=== PATIENT | male | born 1950 | race American Indian/Alaskan Native ===

== ENCOUNTER 2019-07-17 22:04 | Emergency (ER) | payer MEDICARE ==
[2019-07-17] MEDS ORDERED: HYDROmorphone 1 MG/1 ML INJ IM ONE (23:43)
--- NOTE | 2019-07-17 23:44 | Emergency Department Report ---
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 He apparently follows with a Dr. Dennis at [place]. Past medical history reportedly includes hypertension, high cholesterol, chronic back pain, currently on gabapentin, and being deaf. The patient is brought to the hospital by emergency medical services with a complaint of back pain. Apparently, the patient had an accident in 2017. He indicates that he has had back pain since 2017. The patient indicates his back pain feels t wisting in nature. He indicates his does not radiate anywhere. It apparently increases with palpation, twisting, range of motion. He did not describe any relieving factors. He made no complaints of lower extremity weakness, numbness, or bladder or bowel retention or incontinence. He denied urinary symptoms. She denied cough and abdominal pain. He did not endorse any additional complaints. He was brought to the hospital by EMS for this back pain. Apparently, he had a glucose in the 40s by EMS. In the ER, patient has normal Accu-Chek. When questioned, the patient does not indicate that he is taking any diabetic medications. -: year(s) Location: back Consistency: other Improves with: other Worsens with: other - Related Data Previous Rx's Medication Instructions Recorded Last Taken Type Acetaminophen [Non-Aspirin Extra 500 mg PO Q6HR PRN #30 tablet 07/18/19 Unknown Rx Strength] Ibuprofen [Motrin] 600 mg PO Q8H PRN #30 tablet 07/18/19 Unknown Rx Allergies Allergy/AdvReac Type Severity Reaction Status Date / Time No Known Allergies Allergy Verified 07/18/19 00:24 ED Review of Systems ROS: Stated complaint: BACK PAIN Other details as noted in HPI ENT: denies: epistaxis Respiratory: denies: wheezing Cardiovascular: denies: syncope Gastrointestinal: denies: abdominal pain Musculoskeletal: back pain Neurological: denies: numbness, paresthesias ED Past Medical Hx - Past Medical History Previous Medical History?: Yes Hx Hypertension: Yes Hx Diabetes: Yes Additional medical history: Deaf, herniated disc - Surgical History Past Surgical History?: No - Social History Smoking Status: Unknown if ever smoked - Medications Home Medications: Home Medications Medication Instructions Recorded Confirmed Last Taken Type Acetaminophen [Non-Aspirin Extra 500 mg PO Q6HR PRN #30 tablet 07/18/19 Unknown Rx Strength] Ibuprofen [Motrin] 600 mg PO Q8H PRN #30 tablet 07/18/19 Unknown Rx ED Physical Exam - General Limitations: Language Barrier General appearance: alert, in no apparent distress, obese - Head Head exam: Present: atraumatic, normocephalic - Eye Eye exam: Present: normal appearance, EOMI. Absent: nystagmus - ENT ENT exam: Present: normal exam, normal orophraynx, mucous membranes moist, normal external ear exam - Neck Neck exam: Present: normal inspection, full ROM. Absent: tenderness, meningismus - Respiratory Respiratory exam: Present: normal lung sounds bilaterally. Absent: respiratory distress - Cardiovascular Cardiovascular Exam: Present: regular rate, normal rhythm, normal heart sounds. Absent: bradycardia, tachycardia, irregular rhythm, systolic murmur, diastolic murmur, rubs, gallop - GI/Abdominal GI/Abdominal exam: Present: soft. Absent: distended, tenderness, guarding, rebound, rigid, pulsatile mass - Rectal Rectal exam: Present: deferred - Extremities Exam Extremities exam: Present: normal inspection, full ROM, other (2+ pulses noted in the bilateral upper, lower extremities. Compartments soft. No long bony tenderness. The pelvis is stable.). Absent: pedal edema, calf tenderness - Back Exam Back exam: Present: normal inspection, full ROM, paraspinal tenderness. Absent: CVA tenderness (R), CVA tenderness (L) - Neurological Exam Neurological exam: Present: alert, other (there is no facial droop. The tongue is midline. The extraocular movements are intact bilaterally. Patient moving 4 extremities spontaneously, 5/5 strength bilateral upper, lower extremities. Downgoing plantar reflexes bilaterally, sensation intact to pinch in 4 extremities, 2+ biceps, triceps, quadriceps reflex bilaterally) - Skin Skin exam: Present: warm, dry, intact, normal color. Absent: rash ED Course Vital Signs 07/17/19 07/17/19 07/17/19 22:13 22:17 22:30 Temperature 98.5 F Pulse Rate 81 Respiratory 20 Rate Blood Pressure 140/78 136/81 O2 Sat by Pulse 95 95 94 Oximetry 07/17/19 07/17/19 07/17/19 22:45 23:00 23:15 Temperature Pulse Rate Respiratory Rate Blood Pressure 136/81 139/70 139/70 O2 Sat by Pulse 94 95 94 Oximetry 07/17/19 07/18/19 23:30 01:34 Temperature Pulse Rate Respiratory Rate Blood Pressure 138/77 134/86 O2 Sat by Pulse 93 Oximetry ED Medical Decision Making - Lab Data Result diagrams: 07/17/19 23:59 07/17/19 23:59 Vital Signs 07/17/19 07/17/19 07/17/19 22:13 22:17 22:30 Temperature 98.5 F Pulse Rate 81 Respiratory 20 Rate Blood Pressure 140/78 136/81 O2 Sat by Pulse 95 95 94 Oximetry 07/17/19 07/17/19 07/17/19 22:45 23:00 23:15 Temperature Pulse Rate Respiratory Rate Blood Pressure 136/81 139/70 139/70 O2 Sat by Pulse 94 95 94 Oximetry 07/17/19 07/18/19 23:30 01:34 Temperature Pulse Rate Respiratory Rate Blood Pressure 138/77 134/86 O2 Sat by Pulse 93 Oximetry Lab Results 07/17/19 07/17/19 07/17/19 Range/Units 22:22 23:59 23:59 WBC 6.9 (4.5-11.0) K/mm3 RBC 4.82 (3.65-5.03) M/mm3 Hgb 15.1 (11.8-15.2) gm/dl Hct 46.0 H (35.5-45.6) % MCV 95 H (84-94) fl MCH 31 (28-32) pg MCHC 33 (32-34) % RDW 15.8 H (13.2-15.2) % Plt Count 201 (140-440) K/mm3 Sodium 139 (137-145) mmol/L Potassium 4.4 (3.6-5.0) mmol/L Chloride 106.9 (98-107) mmol/L Carbon Dioxide 25 (22-30) mmol/L Anion Gap 12 mmol/L BUN 18 (9-20) mg/dL Creatinine 1.1 (0.8-1.5) mg/dL Estimated GFR > 60 ml/min BUN/Creatinine Ratio 16 % Glucose 95 (75-100) mg/dL POC Glucose 93 (70-105) Calcium 9.2 (8.4-10.2) mg/dL Magnesium 2.60 H (1.7-2.3) mg/dL Total Bilirubin 0.30 (0.1-1.2) mg/dL AST 31 (5-40) units/L ALT 47 (7-56) units/L Alkaline Phosphatase 71 (35-129) units/L Total Creatine Kinase 96 (55-170) units/L Total Protein 8.2 (6.3-8.2) g/dL Albumin 3.8 L (3.9-5) g/dL Albumin/Globulin Ratio 0.9 % Urine Color (Yellow) Urine Turbidity (Clear) Urine pH (5.0-7.0) Ur Specific [place] (1.003-1.030) Urine Protein (Negative) mg/dL Urine Glucose (UA) (Negative) mg/dL Urine Ketones (Negative) mg/dL Urine Blood (Negative) Urine Nitrite (Negative) Urine Bilirubin (Negative) Urine Urobilinogen (<2.0) mg/dL Ur Leukocyte Esterase (Negative) Urine WBC (Auto) (0.0-6.0) /HPF Urine RBC (Auto) (0.0-6.0) /HPF U Epithel Cells (Auto) (0-13.0) /HPF Urine Mucus /HPF 07/18/19 07/18/19 07/18/19 Range/Units 00:23 00:28 01:44 WBC (4.5-11.0) K/mm3 RBC (3.65-5.03) M/mm3 Hgb (11.8-15.2) gm/dl Hct (35.5-45.6) % MCV (84-94) fl MCH (28-32) pg MCHC (32-34) % RDW (13.2-15.2) % Plt Count (140-440) K/mm3 Sodium (137-145) mmol/L Potassium (3.6-5.0) mmol/L Chloride (98-107) mmol/L Carbon Dioxide (22-30) mmol/L Anion Gap mmol/L BUN (9-20) mg/dL Creatinine (0.8-1.5) mg/dL Estimated GFR ml/min BUN/Creatinine Ratio % Glucose (75-100) mg/dL POC Glucose 92 91 (70-105) Calcium (8.4-10.2) mg/dL Magnesium (1.7-2.3) mg/dL Total Bilirubin (0.1-1.2) mg/dL AST (5-40) units/L ALT (7-56) units/L Alkaline Phosphatase (35-129) units/L Total Creatine Kinase (55-170) units/L Total Protein (6.3-8.2) g/dL Albumin (3.9-5) g/dL Albumin/Globulin Ratio % Urine Color Yellow (Yellow) Urine Turbidity Clear (Clear) Urine pH 8.0 H (5.0-7.0) Ur Specific [place] 1.018 (1.003-1.030) Urine Protein <15 mg/dl (Negative) mg/dL Urine Glucose (UA) Neg (Negative) mg/dL Urine Ketones Neg (Negative) mg/dL Urine Blood Neg (Negative) Urine Nitrite Neg (Negative) Urine Bilirubin Neg (Negative) Urine Urobilinogen 2.0 (<2.0) mg/dL Ur Leukocyte Esterase Neg (Negative) Urine WBC (Auto) 4.0 (0.0-6.0) /HPF Urine RBC (Auto) 1.0 (0.0-6.0) /HPF U Epithel Cells (Auto) < 1.0 (0-13.0) /HPF Urine Mucus Few /HPF - EKG Data -: EKG Interpreted by Or EKG shows normal: sinus rhythm Rate: normal - EKG Data When compared to previous EKG there are: previous EKG unavailable 07/18/19 03:04 There is no prior EKG available for comparison 07/18/19 03:05 EKG shows a sinus rhythm, 84 bpm, normal axis, QTC within normal limits, left ventricular hypertrophy, there is no endorsement of chest pain, the EKG is not consistent with ST elevation myocardial infarction. - Radiology Data Radiology results: report reviewed, image reviewed Print Report Referring Physician: CARLOS ALVAREZ Patient Name: JAGRUTI PAZ Date of : 1950 Sex: Male Report Date: 2019-07-17 Report Status: Finalized Findings [facility] [address] [place] [address] XRay Report Signed Patient: JAGRUTI PAZ MR#: [id number] 3 : 1950 Acct:[id number] Age/Sex: 69 / M ADM Date: 07/17/19 Loc: ED Attending Dr: Ordering Physician: CARLOS ALVAREZ MD Date of Service: 07/17/19 Procedure(s): XR chest 1V ap Accession Number(s): [id number] cc: CARLOS ALVAREZ MD Fluoro Time In Minutes: CHEST 1 VIEW 07/17/2019 11:42 PM INDICATION / CLINICAL INFORMATION: hypoglycemia weakness. COMPARISON: None available. FINDINGS: SUPPORT DEVICES: None. HEART / MEDIASTINUM: Mild cardiomegaly. LUNGS / PLEURA: No significant pulmonary or pleural abnormality. No pneumothorax. ADDITIONAL FINDINGS: No significant additional findings. IMPRESSION: 1. Mild cardiomegaly. No acute pulmonary findings. Signer Name: Nixon Purdy MD Signed: 07/17/2019 11:56 PM Workstation Name: [id number] Transcribed By: CAROLINA Dictated By: Nixon Purdy MD Electronically Authenticated By: Nixon Purdy MD Signed Date/Ti me: 07/17/19 8217 Print Report Referring Physician: CARLOS ALVAREZ Patient Name: JAGRUTI PAZ Date of : 1950 Sex: Male Report Date: 2019-07-18 Report Status: [place] [address] Cat Scan Report Signed Patient: JAGRUTI PAZ MR#: [id number] 3 : 1950 Acct:[id number] Age/Sex: 69 / M ADM Date: 07/17/19 Loc: ED Attending Dr: Ordering Physician: CARLOS ALVAREZ MD Date of Service: 07/17/19 Procedure(s): CT abdomen pelvis wo con Accession Number(s): [id number] cc: CARLOS ALVAREZ MD CT ABDOMEN AND PELVIS WITHOUT CONTRAST HISTORY: Back pain and hypoglycemia COMPARISON: None TECHNIQUE: Routine abdominal and pelvic CT exam performed without contrast. Lack of intravenous contrast limits evaluation of the vascular and solid organs.. All CT scans at this location are performed using CT dose reduction for ALARA by means of automated exposure control. FINDINGS: CT ABDOMEN: Lung Bases: No significant abnormality. Liver: Decreased attenuation consistent with hepatic steatosis. Biliary: No significant abnormality. Spleen: No significant abnormality. Unenlarged. Pancreas: No significant abnormality. Adrenals: No significant abnormality. Kidneys: There are some nonobstructing stones in the right kidney measuring up to 4 mm. There is no hydronephrosis or ureteral stone. Lymphatics: No lymphadenopathy. Vasculature: No significant abnormality. Bowel/Peritoneum: No significant abnormality. No free air. No free fluid. Normal appendix. CT PELVIC: : No significant abnormality. Lymphatics: No lymphadenopathy. Osseous Structures: No aggressive appearing osseous lesions. There are chronic appearing superior endplate compression fractures of the T12 and L2 vertebral bodies. Additional Findings: None IMPRESSION: 1. No acute findi ngs. 2. Nonobstructing right intrarenal stones. 3. Hepatic Steatosis. 4. Chronic appearing mild superior endplate compression fractures of the T12 and L2 vertebral bodies. Signer Name: Nixon Purdy MD Signed: 07/18/2019 12:57 AM Workstation Name: [id number] Transcribed By: CAROLINA Dictated By: Nixon Purdy MD Electronically Authenticated By: Nixon Purdy MD Signed Date/Time: 07/18/1956 DD/ - Medical Decision Making Differential diagnosis, including not limited to: Chronic back pain, instrument error, pneumonia, urinary tract infection Assessment and plan: 69-year-old gentleman with a complaint of back pain since 2017. He is afebrile with reassuring vital signs. Physical exam is unremarkable with the exception of reproducible paralumbar back pain. Moving 4 extremities spontaneously without difficulty, lower extremity exam is not suggestive of epidural compression syndrome. Accu-Chek and glucose have remained acceptable while here in the ER. Patient was specifically questioned using a fluent Mongolian sign language teacher, and indicates that he is not taking any diabetic medications. Patient is observed in the ER for multiple hours without clinical decompensation. At this point time, he is resting comfor tably, on his back, with his arms crossed behind his head. He does not appear to be in any acute distress. He can follow up with an outpatient primary care doctor. Critical care attestation.: If time is entered above; I have spent that time in minutes in the direct care o f this critically ill patient, excluding procedure time. ED Disposition Clinical Impression: Chronic back pain Disposition: DC-01 TO HOME OR SELFCARE Is pt being admited?: No Does the pt Need Aspirin: No Condition: Stable Instructions: Chronic Back Pain (ED) Additional Instructions: Rest, avoid heavy lifting, and avoid strenuous physical activities. Continue your outpatient gabapentin medication. Take the pain medications as needed/directed. Follow up with primary care doctor within the next week. Make certain to eat 4-5 meals on a daily basis. Return to the emergency room right away with new, worsening or different symptoms, or symptoms not present on the initial emergency room evaluation. Referrals: [facility] [Provider Group] - 3-5 Days [facility] [Provider Group] - 3-5 Days
--- NOTE | 2019-07-18 00:01 | XRay Report ---
CHEST 1 VIEW 07/17/2019 11:42 PM INDICATION / CLINICAL INFORMATION: hypoglycemia weakness. COMPARISON: None available. FINDINGS: SUPPORT DEVICES: None. HEART / MEDIASTINUM: Mild cardiomegaly. LUNGS / PLEURA: No significant pulmonary or pleural abnormality. No pneumothorax. ADDITIONAL FINDINGS: No significant additional findings. IMPRESSION: 1. Mild cardiomegaly. No acute pulmonary findings. Signer Name: Nixon Purdy MD Signed: 07/17/2019 11:56 PM Workstation Name: [id number]
[2019-07-18 00:11] LABS: Hemoglobin 15.1 gm/dl (11.8-15.2); Mean Corpuscular HGB Conc 33 % (32-34); Mean Corpuscular Volume 95 fl (84-94); Platelet Count 201 K/mm3 (140-440); Red Blood Count 4.82 M/mm3 (3.65-5.03); Red Cell Distribution Width 15.8 % (13.2-15.2)
[2019-07-18] MEDS ORDERED: HYDROmorphone 1 MG/1 ML INJ IV ONE (00:25)
[2019-07-18 00:29] LABS: Alanine Aminotransferase 47 units/L (7-56); Albumin 3.8 g/dL (3.9-5); BUN/Creatinine Ratio 16; Blood Urea Nitrogen 18 mg/dL (9-20); Calcium 9.2 mg/dL (8.4-10.2); Hemolysis Index 63
[2019-07-18 00:48] LABS: Bilirubin,Urine NEG (Negative); Blood,Urine NEG (Negative); Color,Urine Yellow (Yellow); Mucus,Urine FEW /HPF; Protein,Urine <15 mg/dL mg/dL (Negative)
--- NOTE | 2019-07-18 01:01 | Cat Scan Report ---
CT ABDOMEN AND PELVIS WITHOUT CONTRAST HISTORY: Back pain and hypoglycemia COMPARISON: None TECHNIQUE: Routine abdominal and pelvic CT exam performed without contrast. Lack of intravenous cont rast limits evaluation of the vascular and solid organs.. All CT scans at this location are performed using CT dose reduction for ALARA by means of automated exposure control. FINDINGS: CT ABDOMEN: Lung Bases: No significant abnormality. Liver: Decreased attenuation consistent with hepatic steatosis. Biliary: No significant abnormality. Spleen: No significant abnormality. Unenlarged. Pancreas: No significant abnormality. Adrenals: No significant abnormality. Kidneys: There are some nonobstructing stones in the right kidney measuring up to 4 mm. There is no h ydronephrosis or ureteral stone. Lymphatics: No lymphadenopathy. Vasculature: No significant abnormality. Bowel/Peritoneum: No significant abnormality. No free air. No free fluid. Normal appendix. CT PELVIC: : No significant abnormality. Lymphatics: No lymphadenopathy. Osseous Structures: No aggressive appearing osseous lesions. There are chronic appearing superior end plate compression fractures of the T12 and L2 vertebral bodies. Additional Findings: None IMPRESSION: 1. No acute findings. 2. Nonobstructing right intrarenal stones. 3. Hepatic Steatosis. 4. Chronic appearing mild superior endplate compression fractures of the T12 and L2 vertebral bodies. Signer Name: Nixon Purdy MD Signed: 07/18/2019 12:57 AM Workstation Name: [id number]
[2019-07-18 01:37] VITALS: BP 134/86
== END 2019-07-18 06:57 | disposition home or self-care (01) ==
LOC: ED 22:04
DX: G89.29 Other chronic pain (principal); M54.89 Other dorsalgia; K76.0 Fatty (change of) liver, not elsewhere classified; I10 Essential (primary) hypertension; E11.9 Type 2 diabetes mellitus without complications
CPT/HCPCS: 36415; 71045; 74176; 80053; 81001; 82550; 82962; 83735; 85027; 87086; 93005; 93010; 96374; 99285; J1170

== ENCOUNTER 2022-06-21 12:40 | Emergency (ER) | payer MEDICARE ==
[2022-06-21] MEDS ORDERED: HYDROcodone/ACETAMINOPHEN 5-325 MG TAB PO ONE (18:14)
--- NOTE | 2022-06-21 18:16 | Emergency Department Report ---
ED General Adult HPI - General Chief complaint: Skin Rash Stated complaint: BACK PAIN/ RASH/ HEADACHE Time Seen by Provider: 06/21/22 17:03 Source: patient Mode of arrival: Wheelchair Limitations: Other - History of Present Illness Initial comments: 72-year-old male past medical history hypertension, HIV and deaf reports to the ER with complaints of lower back pain and rash to his arms and legs with itching. Patient reports symptoms have been ongoing since January and has been taking NSAIDs for pain but no relief. No other symptoms have been reported. Patient denies any recent injury to his back. Evaluation was done by writing down question and patient will write down his answer. Patient's sister is also at bedside to assist in gathering history. Severity scale (0 -10): 9 - Related Data Previous Rx's Medication Instructions Recorded Last Taken Type Acetaminophen [Non-Aspirin Extra 500 mg PO Q6HR PRN #30 tablet 07/18/19 Unknown Rx Strength] Ibuprofen [Motrin] 600 mg PO Q8H PRN #30 tablet 07/18/19 Unknown Rx Acetaminophen/Codeine [Tylenol 1 tab PO Q6H PRN 2 Days #8 tab 06/21/22 Unknown Rx /Codeine # 3 tab] Hydrocortisone 1% [Hydrocortisone 1 applicatio TP TID 7 Days #1 tub 06/21/22 Unknown Rx 1% CREAM] Allergies Allergy/AdvReac Type Severity Reaction Status Date / Time No Known Allergies Allergy Verified 07/18/19 00:24 ED Review of Systems ROS: Stated complaint: BACK PAIN/ RASH/ HEADACHE Other details as noted in HPI Comment: All other systems reviewed and negative Musculoskeletal: back pain Skin: rash, lesions ED Past Medical Hx - Past Medical History Previous Medical History?: Yes Hx Hypertension: Yes Hx Diabetes: Yes Additional medical history: Deaf, herniated disc - Social History Smoking Status: Unknown if ever smoked - Medications Home Medications: Home Medications Medication Instructions Recorded Confirmed Last Taken Type Acetaminophen [Non-Aspirin Extra 500 mg PO Q6HR PRN #30 tablet 07/18/19 Unknown Rx Strength] Ibuprofen [Motrin] 600 mg PO Q8H PRN #30 tablet 07/18/19 Unknown Rx Acetaminophen/Codeine [Tylenol 1 tab PO Q6H PRN 2 Days #8 tab 06/21/22 Unknown Rx /Codeine # 3 tab] Hydrocortisone 1% [Hydrocortisone 1 applicatio TP TID 7 Days #1 tub 06/21/22 Unknown Rx 1% CREAM] ED Physical Exam - General Limitations: Other General appearance: alert, in no apparent distress - Head Head exam: Present: atraumatic, normocephalic - Eye Eye exam: Present: normal appearance - ENT ENT exam: Present: mucous membranes moist - Neck Neck exam: Present: normal inspection - Respiratory Respiratory exam: Present: normal lung sounds bilaterally. Absent: respiratory distress - Cardiovascular Cardiovascular Exam: Present: regular rate, normal rhythm. Absent: systolic murmur, diastolic murmur, rubs, gallop - GI/Abdominal GI/Abdominal exam: Present: soft, normal bowel sounds - Rectal Rectal exam: Present: deferred - Extremities Exam Extremities exam: Present: normal inspection - Back Exam Back exam: Present: normal inspection, full ROM, tenderness. Absent: paraspinal tenderness, vertebral tenderness - Neurological Exam Neurological exam: Present: alert, oriented X3 - Psychiatric Psychiatric exam: Present: normal affect, normal mood - Skin Skin exam: Present: warm, dry, intact, normal color, rash (Arms and legs, no clinical concern of infection noted. Skin is dry, no swelling, no warmth, no redness. Rash is dark in color) ED Course Vital Signs 06/21/22 06/21/22 13:14 18:40 Temperature 98.6 F 98.4 F Pulse Rate 104 H 66 Respiratory 18 18 Rate Blood Pressure 124/84 144/86 [Right] O2 Sat by Pulse 96 100 Oximetry ED Medical Decision Making - Medical Decision Making 72-year-old male past medical history hypertension, diabetes, HIV reports to the ER with low back pain and rash to her arms and legs since January of this year. On physical exam patient has bilateral back tenderness. No spinal process tenderness. No step-offs. Patient is able to walk with no assistance. No numbness no tingling noted in lower extremities. No no GI symptoms. Rashes noted to upper extremities and lower extremities. Skin intact. No clinical signs for infection noted. Rash is dark in nature. No imaging or labs is needed at this time. Patient informed of clinical results. Patient informed to follow his primary care provider Patient agrees with plan of care and verbalized understanding. No further evaluation is needed at this time. Patient informed if symptoms are to get worse to report back to the ER. Critical care attestation.: If time is entered above; I have spent that time in minutes in the direct care of this critically ill patient, excluding procedure time. ED Disposition Clinical Impression: Rash of body Back pain Qualifiers: Back pain location: low back pain Chronicity: acute Back pain laterality: bilateral Sciatica presence: without sciatica Qualified Code(s): M54.50 - Low back pain, unspecified Disposition: HOME / SELF CARE / HOMELESS Is pt being admited?: No Condition: Stable Instructions: Rash, Adult, Acute Back Pain, Adult Prescriptions: Hydrocortisone 1% [Hydrocortisone 1% CREAM] 1 applicatio TP TID 7 Days #1 tub Acetaminophen/Codeine [Tylenol /Codeine # 3 tab] 1 tab PO Q6H PRN 2 Days #8 tab PRN Reason: Pain , Severe (7-10)
[2022-06-21 18:51] VITALS: BP 144/86
== END 2022-06-21 20:09 | disposition home or self-care (01) ==
LOC: ED 12:40
DX: M54.50 Low back pain, unspecified (principal); R21 Rash and other nonspecific skin eruption; I10 Essential (primary) hypertension; E11.9 Type 2 diabetes mellitus without complications
CPT/HCPCS: 99282